=== PATIENT | male | born 1950 | race Caucasian/White ===

== ENCOUNTER → 2016-06-10 | Outpatient (CLI) | payer OTHER ==
[~2016-06-10] MED LIST: ASPI1TAB83 PO; CARB1TAB8 PO; CLOP1TAB5 PO; DILT180C PO; FLAX1CAP11 PO; MULTTAB58 PO; NITR0.4S UT; OMEG12006 PO; TADA20TA PO
[2016-06-10 09:53] LABS: CHOLESTEROL/HDL RATIO 2.3
== END | disposition home or self-care (01) ==
LOC: C.LAB1850 07:46
PROVIDERS: ATTEND Internal Medicine Cardiovascular Disease
DX: E78.00 Pure hypercholesterolemia, unspecified (principal); I25.10 Atherosclerotic heart disease of native coronary artery without angina pectoris

== ENCOUNTER → 2016-09-22 | Outpatient (CLI) | payer OTHER ==
[~2016-09-22] VITALS: Ht 180.3 cm; Wt 77.8 kg
[2016-09-22 14:00] VITALS: BP 121/74; PULSE 72; Ht 180.3 cm; Wt 77.8 kg
== END | disposition home or self-care (01) ==
LOC: C.NEUR 13:12
PROVIDERS: ATTEND Physician Assistant
DX: G47.33 Obstructive sleep apnea (adult) (pediatric) (principal); G47.52 REM sleep behavior disorder

== ENCOUNTER → 2016-09-30 | Outpatient (CLI) | payer OTHER ==
[2016-09-30 07:33] LABS: BASO % 0.6 %; BASO ABS # 0.02 K/uL (0-0.2); COMPLETE YES; EOS % 3.1 %; HEMATOCRIT 34.5 % (42-52); IG% 0.3 %; LYMPH % 16.2 %; LYMPH ABS # 0.57 K/uL (1.2-3.4); MEAN CELL VOLUME 82.7 fL (80-100); MEAN CORPUSCULAR HEMOGLOBIN 29.7 pg (25-34); MEAN CORPUSCULAR HGB CONC 35.9 g/dl (32-36); MEAN PLATELET VOLUME 8.6 fL (7.4-10.4); MONO % 14.8 %; PLATELET COUNT 193 K/uL (130-400); RED BLOOD COUNT 4.17 M/uL (4.7-6.1); WHITE BLOOD COUNT 3.52 K/uL (4.8-10.8)
[2016-09-30 07:55] LABS: BLOOD UREA NITROGEN 28 mg/dl (7-18); BUN/CREATININE RATIO 18.8 (10-20); CALCIUM 8.6 mg/dl (8.5-10.1); CARBON DIOXIDE 27 mmol/L (21-32); CHLORIDE 95 mmol/L (98-107); GLUCOSE 86 mg/dl (70-99); POTASSIUM 4.3 mmol/L (3.5-5.1); SODIUM 129 mmol/L (136-145)
== END | disposition home or self-care (01) ==
LOC: C.LAB1850 07:07
PROVIDERS: ATTEND Psychiatry & Neurology Neurology
DX: G40.209 Localization-related (focal) (partial) symptomatic epilepsy and epileptic syndromes with complex partial seizures, not intractable, without status epilepticus (principal)

== ENCOUNTER → 2016-12-11 | Outpatient (CLI) | payer OTHER ==
[2016-12-11 09:57] LABS: CHOLESTEROL/HDL RATIO 2.2
== END | disposition home or self-care (01) ==
LOC: C.LAB1850 07:21
PROVIDERS: ATTEND Internal Medicine Cardiovascular Disease
DX: Z11.59 Encounter for screening for other viral diseases (principal); E78.00 Pure hypercholesterolemia, unspecified

== ENCOUNTER → 2017-04-02 | Outpatient (CLI) | payer OTHER ==
[~2017-04-02] VITALS: Ht 180.3 cm; Wt 77.2 kg
[2017-04-02 15:13] VITALS: BP 107/60; PULSE 76; Ht 180.3 cm; Wt 77.2 kg
== END | disposition home or self-care (01) ==
LOC: C.NEUR 12:55
PROVIDERS: ATTEND Physician Assistant
DX: G47.33 Obstructive sleep apnea (adult) (pediatric) (principal); G47.52 REM sleep behavior disorder

== ENCOUNTER → 2017-07-23 | Outpatient (CLI) | payer OTHER | END | disposition home or self-care (01) | LOC: C.LAB1850 07:08 | PROVIDERS: ATTEND Internal Medicine Cardiovascular Disease | DX: E78.00 Pure hypercholesterolemia, unspecified (principal) ==

== ENCOUNTER → 2017-12-10 | Outpatient (CLI) | payer OTHER ==
--- NOTE | 2017-12-10 14:28 | DIAGNOSTIC IMAGING REPORT ---
RENAL ULTRASOUND CLINICAL HISTORY: RENAL INSUFFICIENCY. COMPARISON STUDY: None. TECHNIQUE: Sonography of the kidneys and the urinary bladder was performed. FINDINGS: The right kidney measures 11.1 cm in maximal dimension and the left measures 10.7 cm. There is no hydronephrosis. There is slight prominence of the calyces within the upper pole of the right kidney versus parapelvic cysts. Moderate renal cortical thinning is noted. Renal echogenicity is increased. Bladder is suboptimally assessed due to underdistention. Neither ureteral jet was identified. IMPRESSION: 1. No hydronephrosis. 2. Moderate bilateral renal cortical thinning with increased renal echogenicity suggestive of medical renal disease. Electronically signed by: Lewis Sims M.D. 12/10/2017 2:27 PM Dictated Date/Time: 12/10/2017 2:23 PM
== END | disposition home or self-care (01) ==
LOC: C.ULTR 13:34
PROVIDERS: ATTEND Family Medicine
DX: N28.9 Disorder of kidney and ureter, unspecified (principal)